=== PATIENT | male | born 1980 | race Two or more races ===

== ENCOUNTER 2019-11-06 13:59 | Emergency (ER) | payer SELFPAY ==
[2019-11-06 14:18] VITALS: BP 173/103
[2019-11-06] MEDS ORDERED: HYDROCODONE/ACETAMINOPHEN 5-325 MG TABLET PO ONE (14:25)
--- NOTE | 2019-11-06 14:27 | ER Document Report ---
HPI - HPI Time Seen by Provider: 11/06/19 14:23 Notes: CHIEF COMPLAINT: Left knee injury 2 days ago HPI: History is provided by the patient's friend per his request. Clinical Application Specialist services were offered. They were declined. 39-year-old male coming down some steps 2 days ago slipped and twisted the knee, complains of pain to the medial knee and a sensation of instability when walking. Denies ankle or hip discomfort. Denies numbness or tingling in the toes. Denies other injuries or complaints ROS: See HPI - all other systems were reviewed and are otherwise negative Constitutional: no fever Integumentary: no rash Allergy: no hives Musculoskeletal: + extremity pain or swelling Neurological: no numbness/tingling, no weakness MEDICATIONS: I agree with the patient medications as charted by the RN. ALLERGIES: I agree with the allergies as charted by the RN. PAST MEDICAL HISTORY/PAST SURGICAL HISTORY: Reviewed and agree as charted by RN. SOCIAL HISTORY: Reviewed and agree as charted by RN. FAMILY HISTORY: No significant familial comorbid conditions directly related to patient complaint EXAM: Reviewed vital signs as charted by RN. CONSTITUTIONAL: Alert and oriented and responds appropriately to questions. Well-appearing; well-nourished, mild distress secondary to pain HEAD: Normocephalic; atraumatic EYES: PERRL; Conjunctivae clear, sclerae non-icteric ENT: normal nose; no rhinorrhea; moist mucous membranes NECK: Supple without meningismus CARD: symmetric distal pulses RESP: Normal chest excursion without splinting or tachypnea ABD/GI: non-distended BACK: The back appears normal EXT: Normal ROM in all joints; slight effusion over the anterior left knee is noted. Negative anterior drawer, very slight laxity with valgus rotation on the medial aspect of the left knee. No ballottement of the patella. SKIN: Normal color for age and race; warm; dry; good turgor; no acute lesions noted NEURO: Moves all extremities equally; Motor and sensory function intact PSYCH: The patient's mood and manner are appropriate. Grooming and personal hygiene are appropriate. MDM: 39-year-old male with injury to the left knee, I suspect a likely MCL injury, will obtain x-ray for fracture if negative will place a knee immobilizer for stability and comfort pain medicine, orthopedic referral Past Medical History - Social History Smoking Status: Unknown if Ever Smoked Family History: Reviewed & Not Pertinent Course - Re-evaluation Re-evalutation: 11/06/19 14:59 X-ray does not show evidence of fracture, will place in an immobilizer for comfort and stability refer to orthopedics - Vital Signs Vital signs: Temp Pulse Resp BP Pulse Ox 98.2 F 83 18 173/103 H 98 11/06/19 14:16 11/06/19 14:16 11/06/19 14:16 11/06/19 14:16 11/06/19 14:16 Procedures - Immobilization Left Lower Knee Time completed: 15:12 Pre-Proc Neuro Vasc Exam: Normal Immobilizer type: Crutches, Knee immobilizer Performed by: PCT Post-Proc Neuro Vasc Exam: Normal, Unchanged from pre-exam Alignment checked and good: Yes Discharge - Discharge Clinical Impression: Left knee injury Qualifiers: Encounter type: initial encounter Qualified Code(s): S89.92XA - Unspecified injury of left lower leg, initial encounter Condition: Stable Disposition: HOME, SELF-CARE Additional Instructions: 1. ice and elevate the lower extremity as much as possible 2. utilize the crutches as instructed, weight bearing as tolerated with splint on 3. medications for pain as prescribed, no driving on narcotics 4. follow up with orthopedics for further evaluation and treatment, call for appt. 5. do not sleep in the knee immobilizer, take off at night or rest. 1. hielo y elevar la extremidad inferior tanto yamileth sea posible 2. utilice las muletas segn las instrucciones, soporte de peso segn lo tolerado con frula 3. medicamentos para el dolor segn lo prescrito, no conducir con narcticos 4. seguimiento con ortopedia para evaluacin y tratamiento adicionales, llame para solicitar rosie. 5. no duerma en el inmovilizador de rodilla, despegue por la noche o descanse. Prescriptions: Naproxen 500 mg PO BID PRN #14 tablet PRN Reason: Hydrocodone/Acetaminophen [[place] 5-325 mg Tablet] 1 tab PO Q4 PRN #15 tablet PRN Reason: Referrals: MINAL L[facility] MD [ACTIVE STAFF] - Follow up as needed
--- NOTE | 2019-11-06 14:52 | RADIOLOGY REPORT (SQ) ---
EXAM DESCRIPTION: KNEE LEFT 4 VIEW COMPLETED DATE/TIME: 11/06/2019 2:43 pm REASON FOR STUDY: injury COMPARISON: None. NUMBER OF VIEWS: Four views. TECHNIQUE: AP, lateral, and both oblique radiographic images acquired of the left knee. LIMITATIONS: Patient's pant leg is scrunched up over the distal thigh. This partially obscures the suprapatellar knee joint effusion/ distal thigh soft tissue swelling FINDINGS: MINERALIZATION: Normal. BONES: No acute fracture or dislocation. No worrisome bone lesions. JOINT: Suprapatellar knee joint effusion SOFT TISSUES: Medial suprapatellar soft tissue swelling, question focal hematoma. No radio-opaque fo reign body. OTHER: No other significant finding. IMPRESSION: No acute fracture or malalignment. Suprapatellar knee joint effusion. Suspect a soft tissue contusion in the medial suprapatellar region TECHNICAL DOCUMENTATION: JOB ID: [id number] 2010 [employer]- All Rights Reserved Reading location - IP/workstation name: [email or web address]
== END 2019-11-06 15:37 | disposition home or self-care (01) ==
LOC: ER 13:59
DX: S89.92XA Unspecified injury of left lower leg, initial encounter (principal); M25.462 Effusion, left knee; W10.9XXA Fall (on) (from) unspecified stairs and steps, initial encounter
CPT/HCPCS: 99283